=== PATIENT | male | born 1960 | race Hispanic/Latino ===

== ENCOUNTER 2018-09-20 22:58 | Inpatient (IN) | payer OTHER ==
[~2018-09-20] VITALS: Ht 167.6 cm; Wt 130.0 kg
[2018-09-20 23:27] LABS: BASOPHILS % (AUTO) 0.9 % (0.0-5.0); EOSINOPHILS % (AUTO) 0.8 % (0.0-8.0); HEMATOCRIT 42.9 % (42-54); LYMPHOCYTES % (AUTO) 32.3 % (21.0-51.0); MEAN CORPUSCULAR HEMOGLOBIN 29.4 pg (27.0-33.0); NUCLEATED RED BLOOD CELLS 0.1 % (0.0-0.19); PLATELET COUNT (AUTO) 155 K/uL (130-400); RED BLOOD CELL COUNT(AUTO) 5.11 MIL/uL (4.50-6.20); RED CELL DISTRIBUTION WIDTH 13.1 % (11.0-15.5); WHITE BLOOD COUNT (AUTO) 10.7 K/uL (4.8-10.8)
[2018-09-20 23:41] LABS: ALBUMIN 3.4 g/dL (3.5-5.0); BILIRUBIN,TOTAL 0.9 mg/dL (0.2-1.0); CREATININE 2.4 mg/dL (0.5-1.5); POTASSIUM 4.4 mmol/L (3.5-5.1); TOTAL PROTEIN, SERUM 7.3 g/dL (6.0-8.3)
[2018-09-21] VITALS (14 sets, daily range): BP systolic 148–178; BP diastolic 75–104
[2018-09-21] MEDS ORDERED: ONDANSETRON HCL 4 MG/2 ML VIAL ONE (00:19)
[2018-09-21] MEDS ORDERED: MORPHINE SULFATE 4 MG/1ML SYG ONE ×2 (00:19→02:12)
[2018-09-21] MEDS ORDERED: SODIUM CHLORIDE 0.9% 1000ML 1,000 ML IV ONE (00:20)
[2018-09-21] MEDS ORDERED: CALCITONIN 200 UNITS/ML 2 ML VIAL IM ONE (00:44)
[2018-09-21] MEDS ORDERED: ACETAMINOPHEN 325 MG TAB PO PRN (02:15)
[2018-09-21] MEDS ORDERED: MORPHINE SULFATE 2 MG/ML 1ML SYG IV PRN (02:15)
[2018-09-21] MEDS ORDERED: ONDANSETRON HCL 4 MG/2 ML VIAL IV PRN (02:15)
[2018-09-21 02:19] LABS: APPEARANCE,URINE CLEAR (CLEAR); BILIRUBIN,URINE NEGATIVE (NEGATIVE); COLOR,URINE YELLOW (YELLOW); GLUCOSE, URINE (UA) NEGATIVE (NEGATIVE); KETONES,URINE NEGATIVE (NEGATIVE); LEUKOCYTE ESTERASE ,URINE NEGATIVE (NEGATIVE); NITRATE,URINE NEGATIVE (NEGATIVE); OCCULT BLOOD,URINE NEGATIVE (NEGATIVE); PROTEIN,URINE NEGATIVE (NEGATIVE); UROBILINOGEN,URINE 0.2 mg/dL (0.2-1.0)
--- NOTE | 2018-09-21 03:00 | NUR ---
ADMISSION NOTE ADMIT TO ROOM 419 VIA STRETCHER FROM ER. PATIENT AWAKE, ALERT, OX3, NO SOB, NO C/O PAIN AT THIS TIME, FAMILY AT BEDSIDE, TEACH PATIENT PLAN OF CARE AND EXPECTED OUTCOME, PATIENT AND FAMILY VERBALIZED UNDERSTANDING VIA TEACH BACK
[2018-09-21] MEDS: INSULIN HUMULIN R 100 UNIT/ML 3ML SQ SCH ×4 (06:08→20:14)
[2018-09-21] MEDS: MORPHINE SULFATE 4 MG/1ML SYG IV PRN ×2 (07:49→12:19)
[2018-09-21] MEDS: ENOXAPARIN SODIUM 40 MG/0.4 ML SYRINGE SQ SCH ×2 (09:00→20:38)
[2018-09-21] MEDS: FAMOTIDINE/PF 20 MG/2 ML VIAL IV SCH (11:05)
[2018-09-21] MEDS: SODIUM CHLORIDE 0.9% 1000ML 1,000 ML IV SCH ×2 (11:06→17:35)
[2018-09-21] MEDS: HYDRALAZINE HCL 20 MG/ML VIAL IV PRN (11:43)
--- NOTE | 2018-09-21 14:30 | NUR ---
cm note met with patient and with family and [facility] resides at home with spouse, and sister assists, pt states has gotten weaker in the last 3 weeks, and is using a walker, due to weakness. [facility] dc plan is back to same home setting at time of dc. provided pt with list of low income clincs in the area, and rx assist. pt states he has spoken to [employer] for possible assist with [facility] coverage. Addendum: 09/21/18 at 1432 by BRIE GARRIDO CM Amended: Links added.
[2018-09-21 16:53] LABS: CREATININE 2.4 mg/dL (0.5-1.5); PHOSPHORUS 4.9 mg/dL (2.5-4.9)
--- NOTE | 2018-09-21 17:35 | NUR ---
DR PALM CONSULTED ON PATIENT NEW ORDERS RECEIVED FOR DAILY WT, I&O , LABS IN AM AND ZOMETA 5MG IV TIME ONCE
--- NOTE | 2018-09-21 17:40 | NUR ---
REPORT GIVEN AND PATIENT MOVED TO [facility], FAMILY INFORMED OF ROOM CHANGE
[2018-09-21] MEDS ORDERED: PAMIDRONATE DISODIUM 90MG VIAL 90 MG in SODIUM CHLORIDE 0.9% 1000ML 1,000 ML IV SCH (18:00)
--- NOTE | 2018-09-21 18:06 | NUR ---
DR ECKERT PAGED VIA [employer] SERVICE.
[2018-09-21] MEDS ORDERED: PHARMACY COMMUNICATION MISC SCH (18:15)
--- NOTE | 2018-09-21 18:46 | NUR ---
DR VARMA CANDY SEPARATOR HARD FOR DR ANN, PAGED VIA ANSWERING SERVICE.
[2018-09-21] MEDS ORDERED: DEXAMETHASONE SOD PHOSPHATE 4 MG/ML 1ML VIAL IVP SCH (20:00)
[2018-09-21] MEDS ORDERED: HYDROCORTISONE SOD SUCCINATE 100 MG/2 ML VIAL IV SCH (20:00)
[2018-09-21] MEDS: FUROSEMIDE 10 MG/ML 4ML VIAL IV SCH (20:37)
[2018-09-22] VITALS (24 sets, daily range): BP systolic 125–178; BP diastolic 55–93
[2018-09-22] MEDS: SODIUM CHLORIDE 0.9% 1000ML 1,000 ML IV SCH ×8 (00:14→23:32)
[2018-09-22] MEDS: DEXAMETHASONE SOD PHOSPHATE 4 MG/ML 1ML VIAL IVP SCH ×5 (00:14→23:07)
[2018-09-22] MEDS: HYDRALAZINE HCL 20 MG/ML VIAL IV PRN ×2 (01:56→23:07)
[2018-09-22 04:03] LABS: HEMATOCRIT 45.2 % (42-54); MEAN CORPUSCULAR HEMOGLOBIN 29.2 pg (27.0-33.0); MEAN CORPUSCULAR HGB CONC 34.9 g/dL (32.0-36.0); MEAN CORPUSCULAR VOLUME 83.6 fL (79-99); NUCLEATED RED BLOOD CELLS 0.2 % (0.0-0.19); PLATELET COUNT (AUTO) 187 K/uL (130-400); RED CELL DISTRIBUTION WIDTH 13.2 % (11.0-15.5); WHITE BLOOD COUNT (AUTO) 8.4 K/uL (4.8-10.8)
[2018-09-22 04:17] LABS: ALBUMIN 3.3 g/dL (3.5-5.0); BILIRUBIN,TOTAL 0.8 mg/dL (0.2-1.0); CREATININE 2.4 mg/dL (0.5-1.5); MAGNESIUM 1.9 mg/dL (1.80-2.40); PHOSPHORUS 4.3 mg/dL (2.5-4.9); TOTAL PROTEIN, SERUM 7.6 g/dL (6.0-8.3)
[2018-09-22] MEDS: INSULIN HUMULIN R 100 UNIT/ML 3ML SQ SCH ×4 (06:40→20:53)
[2018-09-22] MEDS: FAMOTIDINE/PF 20 MG/2 ML VIAL IV SCH (08:48)
[2018-09-22] MEDS: FOLIC ACID/VITAMIN B COMP W-C 1 MG CAP/TAB PO SCH (08:48)
[2018-09-22] MEDS: FUROSEMIDE 10 MG/ML 4ML VIAL IV SCH ×2 (08:49→20:29)
[2018-09-22] MEDS: ENOXAPARIN SODIUM 40 MG/0.4 ML SYRINGE SQ SCH ×2 (09:00→20:30)
--- NOTE | 2018-09-22 10:10 | NUR ---
DYSPHAGIA EVAL COMPLETE. -S/S OF ASPIRATION. RECOMMEND REGULAR, THIN LIQUID DIET; PILLS WHOLE WITH LIQUIDS. PATIENT INFORMATION: Pt IS A 57 Y.O. MALE REFERRED FOR A BEDSIDE DYSPHAGIA EVALUATION SECONDARY TO C/O DIFFICULTY SWALLOWING LIQUIDS IN THE HOME. Pt AAOX3 AND SERVED THE PRIMARY INFORMANT FOR MEDICAL AND SOCIAL HISTORY. Pt ADMITTED SECONDARY TO POSSIBLE PROSTATE MASS, HYPERCALCEMIA, RENAL INSUFFICIENCY. PMHX IDDM, HYPERTENSION, HYPERCHOLESTEREMIA, HERNIA, URINARY INCONTINENCE, BPH, OBESITY, APPENDECTOMY, BRAIN TUMOR, RIGHT LOWER EXTREMITY SURGERY. EVALUATION: SWALLOW FUNCTION AND EFFICIENCY WITHIN FUNCTIONAL LIMITS. ORAL MOTOR STRENGTH, COORDINATION, AND ROM WITHIN FUNCTIONAL LIMITS. LARYNGEAL ELEVATION/EXCURSION STRONG WITH TIMELY PHARYNGEAL RESPONSE. NO OVERT SIGNS OR SYMPTOMS OF ASPIRATION PRESENT AT BEDSIDE. VOCAL QUALITY CLEAR WITH NO THROAT CLEAR OR COUGH RESPONSE PRESENT. RECOMMENDATIONS: 1. REGULAR TEXTURE, THIN LIQUID DIET; PILLS WHOLE WITH LIQUIDS. 2. COMPENSATORY STRATEGIES (PROPHYLAXIS): *SEATED AT 90 DEGREE ANGLE G-CODES SWALLOWING: [id number] Addendum: 09/22/18 at [address] Amended: Links added.
--- NOTE | 2018-09-22 15:30 | NUR ---
RD Notification Notification for Poor appetite and wt loss. Pt admitted for prostate mass, hypercalcemia, renal insufficiency. Pt with poor PO at 25%. RD rec to add 60mL ProMod BID and appetite stimulant as medically feasible. Pt LBM 09/18/18. Pt monitored labs: Na 135, Cl 98, BUN 46, Cr 2.4, GFR 39m Glu 336, Ca 16.7, Alk 160, Alb 3.3. RD to continue to monitor. Please notify RD as additional nutrition concerns arise. Thank you. Addendum: 09/22/18 at [address] RD Amended: Links added.
[2018-09-22] MEDS: MORPHINE SULFATE 4 MG/1ML SYG IV PRN (21:20)
[2018-09-23] VITALS (24 sets, daily range): BP systolic 112–173; BP diastolic 59–90
[2018-09-23] MEDS: SODIUM CHLORIDE 0.9% 1000ML 1,000 ML IV SCH ×5 (04:06→21:32)
[2018-09-23 04:09] LABS: HEMATOCRIT 40.8 % (42-54); MEAN CORPUSCULAR HEMOGLOBIN 30.2 pg (27.0-33.0); MEAN CORPUSCULAR HGB CONC 36.2 g/dL (32.0-36.0); MEAN CORPUSCULAR VOLUME 83.3 fL (79-99); NUCLEATED RED BLOOD CELLS 0.1 % (0.0-0.19); PLATELET COUNT (AUTO) 181 K/uL (130-400); RED CELL DISTRIBUTION WIDTH 13.5 % (11.0-15.5)
[2018-09-23 04:29] LABS: CREATININE 2.3 mg/dL (0.5-1.5); MAGNESIUM 1.1 mg/dL (1.80-2.40); PHOSPHORUS 3.4 mg/dL (2.5-4.9)
[2018-09-23] MEDS ORDERED: MAGNESIUM 2GM PREMIX 50ML 50 ML IV ONE ×2 (04:45→05:18)
[2018-09-23] MEDS: DEXAMETHASONE SOD PHOSPHATE 4 MG/ML 1ML VIAL IVP SCH ×4 (06:13→23:22)
[2018-09-23] MEDS ORDERED: POTASSIUM CHLORIDE 20 MEQ ERTAB PO SCH (06:30)
[2018-09-23] MEDS: INSULIN LISPRO 100 UNIT/ML 3ML SQ SCH ×7 (06:41→21:30)
[2018-09-23] MEDS ORDERED: LIDOCAINE HCL-MPF 1% 2ML VIAL IVP PRN (07:00)
[2018-09-23] MEDS ORDERED: POTASSIUM CHLORIDE 10% ELIXIR 20 MEQ/15 ML UDCUP PO PRN (07:00)
[2018-09-23] MEDS ORDERED: POTASSIUM CHLORIDE 10MEQ/100ML 100 ML IV PRN (07:00)
[2018-09-23] MEDS: METOPROLOL TARTRATE 25 MG TAB PO SCH ×3 (08:14→20:09)
--- NOTE | 2018-09-23 08:20 | NUR ---
RADHA TONG [facility] FOR DR. DECLAN BORRERO IN TO SEE PATIENT. LABS REVIEWED, SHE SPOKE WITH PT AND SPOUSE REGARDING FURTHER POC. PENDING 2D ECHO, PENDING DR. ANN TO EVALUATE AND PENDING CARDIAC CLEARANCE. WILL CONT TO MONITOR. Addendum: 09/23/18 at 1511 by JOSE ANGEL COLLINS RN RN CARDIAC CLEARANCE FOR POSSIBLE DECOMPRESSION BY DR. CARMICHAEL.
[2018-09-23] MEDS: FAMOTIDINE/PF 20 MG/2 ML VIAL IV SCH (09:41)
[2018-09-23] MEDS: FOLIC ACID/VITAMIN B COMP W-C 1 MG CAP/TAB PO SCH (09:41)
[2018-09-23] MEDS: POLYETHYLENE GLYCOL 3350 17 GM POWD.PACK PO SCH (09:42)
[2018-09-23] MEDS: FUROSEMIDE 10 MG/ML 4ML VIAL IV SCH ×2 (09:42→20:09)
[2018-09-23] MEDS: ENOXAPARIN SODIUM 40 MG/0.4 ML SYRINGE SQ SCH ×2 (09:43→20:10)
--- NOTE | 2018-09-23 10:17 | NUR ---
ROUNDS GISELE Hernandez FOR DR. SANCHEZ IN TO SEE PATIENT. MADE AWARE 2-DECHO HAS BEEN DONE TODAY ABOUT 30 MINUTES AGO. WILL AWAIT FOR DR. SANCHEZ.
--- NOTE | 2018-09-23 12:00 | NUR ---
MD ROUNDS DR. DECLAN BORRERO AND DR. PALM IN TO SEE PATIENT. NEW ORDERS RECEIVED TO BE CARRIED OUT.
[2018-09-23] MEDS: MAGNESIUM 2GM PREMIX 50ML 50 ML IV PRN (13:09)
--- NOTE | 2018-09-23 17:04 | NUR ---
ROUNDS DR. SANCHEZ IN TO SEE PATIENT. PATIENT HAS BEEN CLEARED FOR SX. REFER TO MD PROGRESS NOTE. I CALLED DR. CARMICHAEL'S OFFICE, SPOKE WITH ANTONETTE LEE. INFORMED OF CLEARANCE. STATES HE WILL CALL BACK WITH FURTHER ORDERS.
--- NOTE | 2018-09-23 17:45 | NUR ---
RECEIVED CALL BACK FROM DR. CARMICHAEL'S OFFICE, SPOKE WITH ANTONETTE Hernandez PER , PLAN FOR SX ON SATURDAY. NO NEW ORDERS AT THIS TIME. DR. CHOE MADE AWARE.
--- NOTE | 2018-09-23 18:12 | NUR ---
ROUNDS DR. ANN IN TO SEE PATIENT. MD SPOKE WITH PATIENT AND SPOUSE. NEW ORDERS RECEIVED TO BE CARRIED OUT.
--- NOTE | 2018-09-23 19:22 | NUR ---
LABS ORDERED BY DR. ANN TO BE ADDRESSED BY LAB TOMORROW. I SPOKE TO YFN, STATES THEY WILL BE SENT OUT TOMORROW EVENING. ORDER FAXED TO LAB 8233. HILARIO GALLARDO MADE AWARE.
[2018-09-23] MEDS: POTASSIUM CHLORIDE 20 MEQ ERTAB PO PRN (20:09)
[2018-09-23] MEDS: INSULIN GLARGINE 100 UNITS/ML 10 ML VIAL SQ SCH (21:31)
[2018-09-24] VITALS (24 sets, daily range): BP systolic 109–163; BP diastolic 42–109
[2018-09-24] MEDS: SODIUM CHLORIDE 0.9% 1000ML 1,000 ML IV SCH ×6 (01:31→22:15)
--- NOTE | 2018-09-24 03:05 | NUR ---
STATUS CALLED TO BEDSIDE BY SPOUSE PT ATTEMPTING TO GET OUT OF BED. PT CONFUSED TO PLACE ANSWERS ALL QUESTIONS ASKED APPROPRIATELY MINUS PLACE. PUPILS EQUAL AND REACTIVE MOVING EXTREMITIES EQUALLY MINUS RIGHT LEG WEAKNESS WHICH IS NOT A NEW FINDING. PT REORIENTED TO PLACE AND SITUATION. HOA SOLUTION DIRECTOR NOTIFIED OF STATUS. WILL CONTINUE TO MONITOR. BED ALARM IS ON
[2018-09-24] MEDS ORDERED: DIPHENHYDRAMINE HCL 25 MG CAPSULE PO ONE (03:15)
[2018-09-24] MEDS ORDERED: DIPHENHYDRAMINE HCL 25 MG CAPSULE ONE (03:18)
[2018-09-24 03:47] LABS: BASOPHILS % (AUTO) 0.2 % (0.0-5.0); HEMATOCRIT 41.4 % (42-54); LYMPHOCYTES % (AUTO) 10.9 % (21.0-51.0); MEAN CORPUSCULAR HEMOGLOBIN 29.9 pg (27.0-33.0); MEAN CORPUSCULAR HGB CONC 35.7 g/dL (32.0-36.0); MEAN CORPUSCULAR VOLUME 83.9 fL (79-99); NEUTROPHILS % (AUTO) 82.9 % (40.0-77.0); NUCLEATED RED BLOOD CELLS 0.1 % (0.0-0.19); PLATELET COUNT (AUTO) 195 K/uL (130-400); RED BLOOD CELL COUNT(AUTO) 4.93 MIL/uL (4.50-6.20); RED CELL DISTRIBUTION WIDTH 13.4 % (11.0-15.5); WHITE BLOOD COUNT (AUTO) 9.4 K/uL (4.8-10.8)
[2018-09-24 04:02] LABS: ALBUMIN 2.9 g/dL (3.5-5.0); CREATININE 2.4 mg/dL (0.5-1.5); MAGNESIUM 1.6 mg/dL (1.80-2.40); POTASSIUM 3.3 mmol/L (3.5-5.1)
[2018-09-24] MEDS: POTASSIUM CHLORIDE 20 MEQ ERTAB PO PRN ×4 (04:12→16:08)
[2018-09-24 04:13] LABS: B-TYPE NATRIURETIC PEPTIDE 42 pg/mL (0-100)
[2018-09-24] MEDS: MAGNESIUM 2GM PREMIX 50ML 50 ML IV PRN ×2 (04:13→14:57)
[2018-09-24] MEDS: DEXAMETHASONE SOD PHOSPHATE 4 MG/ML 1ML VIAL IVP SCH ×4 (06:16→23:13)
[2018-09-24] MEDS: INSULIN LISPRO 100 UNIT/ML 3ML SQ SCH ×7 (06:23→20:33)
[2018-09-24] MEDS ORDERED: LACTULOSE 20 GM/30 ML UDCUP PO PRN (07:45)
[2018-09-24] MEDS: FOLIC ACID/VITAMIN B COMP W-C 1 MG CAP/TAB PO SCH (08:19)
[2018-09-24] MEDS: METOPROLOL TARTRATE 25 MG TAB PO SCH ×2 (08:19→20:07)
[2018-09-24] MEDS: FAMOTIDINE/PF 20 MG/2 ML VIAL IV SCH (08:20)
[2018-09-24] MEDS: POLYETHYLENE GLYCOL 3350 17 GM POWD.PACK PO SCH (08:20)
[2018-09-24] MEDS: FUROSEMIDE 10 MG/ML 4ML VIAL IV SCH ×2 (08:20→20:03)
[2018-09-24] MEDS: ENOXAPARIN SODIUM 40 MG/0.4 ML SYRINGE SQ SCH ×2 (08:20→20:09)
[2018-09-24 14:25] LABS: MAGNESIUM 1.9 mg/dL (1.80-2.40); POTASSIUM 3.3 mmol/L (3.5-5.1)
[2018-09-24] MEDS ORDERED: LOSA50TA64 PO (17:28)
[2018-09-24] MEDS ORDERED: AMLO5TAB9 PO (17:28)
[2018-09-24] MEDS ORDERED: ISOS10TA8 PO (17:28)
[2018-09-24] MEDS ORDERED: METO-409 PO (17:28)
[2018-09-24] MEDS ORDERED: PRAV10TA39 PO (17:28)
[2018-09-24] MEDS ORDERED: ACAR50 PO (17:28)
[2018-09-24] MEDS ORDERED: GLYB5TAB8 PO (17:28)
[2018-09-24] MEDS: INSULIN GLARGINE 100 UNITS/ML 10 ML VIAL SQ SCH (20:33)
[2018-09-24] MEDS ORDERED: DIAZEPAM 5 MG TABLET PO PRN (21:00)
[2018-09-25] VITALS (23 sets, daily range): BP systolic 121–175; BP diastolic 61–107
[2018-09-25] MEDS: SODIUM CHLORIDE 0.9% 1000ML 1,000 ML IV SCH ×4 (01:43→15:18)
[2018-09-25] MEDS: POTASSIUM CHLORIDE 20 MEQ ERTAB PO PRN (01:46)
[2018-09-25 03:52] LABS: HEMATOCRIT 40.8 % (42-54); MEAN CORPUSCULAR HEMOGLOBIN 29.1 pg (27.0-33.0); MEAN CORPUSCULAR HGB CONC 34.9 g/dL (32.0-36.0); MEAN CORPUSCULAR VOLUME 83.4 fL (79-99); PLATELET COUNT (AUTO) 214 K/uL (130-400); RED BLOOD CELL COUNT(AUTO) 4.89 MIL/uL (4.50-6.20); RED CELL DISTRIBUTION WIDTH 13.3 % (11.0-15.5); WHITE BLOOD COUNT (AUTO) 11.8 K/uL (4.8-10.8)
[2018-09-25 04:08] LABS: ALBUMIN 2.8 g/dL (3.5-5.0); BILIRUBIN,TOTAL 0.5 mg/dL (0.2-1.0); CREATININE 2.1 mg/dL (0.5-1.5); MAGNESIUM 2.9 mg/dL (1.80-2.40); PHOSPHORUS 2.7 mg/dL (2.5-4.9); POTASSIUM 3.8 mmol/L (3.5-5.1); TOTAL PROTEIN, SERUM 6.1 g/dL (6.0-8.3)
[2018-09-25] MEDS ORDERED: LORAZEPAM 2 MG/ML 1 ML VIAL ONE (04:30)
[2018-09-25] MEDS ORDERED: LORAZEPAM 2 MG/ML 1 ML VIAL IVP ONE (04:45)
[2018-09-25] MEDS: DEXAMETHASONE SOD PHOSPHATE 4 MG/ML 1ML VIAL IVP SCH ×3 (05:20→17:48)
[2018-09-25 05:35] LABS: LYMPHOCYTES % (MANUAL) 12 % (22-44); MAN.DIFF COMMENT-IMPRESSION MANUAL DIFFERENTIAL; MONOCYTES % (MANUAL) 9 % (2-9); SEGMENTED NEUTROPHILS % 79 % (40-70)
[2018-09-25] MEDS: INSULIN LISPRO 100 UNIT/ML 3ML SQ SCH ×7 (06:18→21:16)
[2018-09-25] MEDS ORDERED: HALOPERIDOL LACTATE 5 MG/ML VIAL IV PRN (07:30)
--- NOTE | 2018-09-25 07:45 | NUR ---
MITTENS APPLIED TO BOTH HANDS THIS MORNING PATIENT ATTEMPTING TO REMOVE PIV AND MONITORS. DR PARKER ORDERED IV HALDOL. 20G PIV STARTED TO RIGHT HAND ON FIRST ATTEMPT, HALDOL GIVEN AND PIV FLUSHED. PATIENT'S EDUCATED ON PLAN AND MEDICATION. ALL QUESTIONS ANSWERED.
[2018-09-25] MEDS: POLYETHYLENE GLYCOL 3350 17 GM POWD.PACK PO SCH (08:15)
[2018-09-25] MEDS: FAMOTIDINE/PF 20 MG/2 ML VIAL IV SCH (09:00)
[2018-09-25] MEDS: FOLIC ACID/VITAMIN B COMP W-C 1 MG CAP/TAB PO SCH (09:00)
[2018-09-25] MEDS: METOPROLOL TARTRATE 25 MG TAB PO SCH ×2 (09:00→21:13)
[2018-09-25] MEDS: ENOXAPARIN SODIUM 40 MG/0.4 ML SYRINGE SQ SCH ×2 (09:33→21:13)
[2018-09-25] MEDS: NICOTINE 21 MG/ 24 HR PATCH TD SCH (09:33)
[2018-09-25] MEDS: INSULIN GLARGINE 100 UNITS/ML 10 ML VIAL SQ SCH (21:15)
[2018-09-26] VITALS (12 sets, daily range): BP systolic 124–177; BP diastolic 65–109
[2018-09-26] MEDS: DEXAMETHASONE SOD PHOSPHATE 4 MG/ML 1ML VIAL IVP SCH ×4 (00:20→17:21)
[2018-09-26] MEDS: INSULIN LISPRO 100 UNIT/ML 3ML SQ SCH ×7 (02:28→21:39)
[2018-09-26 04:09] LABS: INR 1.06 (0.85-1.15); PARTIAL THROMBOPLASTIN TIME 28.7 SEC (26.3-35.5); PROTHROMBIN TIME 11.1 SEC (9.6-11.6)
[2018-09-26 04:16] LABS: ALBUMIN 2.6 g/dL (3.5-5.0); BILIRUBIN,TOTAL 0.5 mg/dL (0.2-1.0); MAGNESIUM 1.8 mg/dL (1.80-2.40); PHOSPHORUS 2.7 mg/dL (2.5-4.9); POTASSIUM 3.8 mmol/L (3.5-5.1); TOTAL PROTEIN, SERUM 5.9 g/dL (6.0-8.3)
[2018-09-26 04:39] LABS: BASOPHILS % (AUTO) 0.2 % (0.0-5.0); EOSINOPHILS % (AUTO) 0.2 % (0.0-8.0); HEMATOCRIT 39.2 % (42-54); LYMPHOCYTES % (AUTO) 12.4 % (21.0-51.0); MEAN CORPUSCULAR HEMOGLOBIN 30.2 pg (27.0-33.0); MEAN CORPUSCULAR HGB CONC 35.7 g/dL (32.0-36.0); MEAN CORPUSCULAR VOLUME 84.7 fL (79-99); MONOCYTES % (AUTO) 9.2 % (3.0-13.0); PLATELET COUNT (AUTO) 186 K/uL (130-400); RED BLOOD CELL COUNT(AUTO) 4.63 MIL/uL (4.50-6.20); RED CELL DISTRIBUTION WIDTH 13.6 % (11.0-15.5); WHITE BLOOD COUNT (AUTO) 8.7 K/uL (4.8-10.8)
[2018-09-26] MEDS: SODIUM CHLORIDE 0.9% 1000ML 1,000 ML IV SCH ×2 (04:58→17:23)
[2018-09-26] MEDS: METOPROLOL TARTRATE 25 MG TAB PO SCH ×2 (07:37→21:35)
[2018-09-26] MEDS: MAGNESIUM 2GM PREMIX 50ML 50 ML IV PRN (07:39)
[2018-09-26] MEDS: POLYETHYLENE GLYCOL 3350 17 GM POWD.PACK PO SCH ×2 (07:58→10:10)
[2018-09-26] MEDS: FOLIC ACID/VITAMIN B COMP W-C 1 MG CAP/TAB PO SCH ×2 (07:58→10:11)
[2018-09-26] MEDS: ENOXAPARIN SODIUM 40 MG/0.4 ML SYRINGE SQ SCH ×5 (07:58→21:00)
[2018-09-26] MEDS: NICOTINE 21 MG/ 24 HR PATCH TD SCH ×2 (07:59→10:11)
--- NOTE | 2018-09-26 08:33 | NUR ---
PT RECEIVED IN BED, AAOX4, NO ACUTE DISTRESS NOTED. PT IS CALM AND COOPERATIVE WITH CARE. HAND MITTENS OFF. PT IS NPO FOR SCHEDULED PROCEDURE LAMINECTOMY WITH BONE BIOPSY WITH DR. CARMICHAEL. PT IS NPO, CONSENT IS SIGNED AND IN CHART. TELE WITH SR 60s. NEW PIV TO RIGHT FA INSERTED 20G. PIV TO RIGHT HAND REMOVED D/T PIV LEAKING. WILL CONT TO MONITOR CLOSELY.
--- NOTE | 2018-09-26 08:37 | NUR ---
MD ROUNDS DR. WARNER IN TO SEE PATIENT.
--- NOTE | 2018-09-26 09:38 | NUR ---
RECEIVED CALL FROM WILLIAN GALLARDOMANUFACTURING APPLICATIONS ENGINEER, PER DR. AMOL PadillaX TO BE RESCHEDULED FOR TOMORROW AT 0800. PATIENT AND FAMILY MADE AWARE. I UPDATED DR. WARNER OF NEW ORDER.
[2018-09-26] MEDS: FAMOTIDINE/PF 20 MG/2 ML VIAL IV SCH (10:11)
[2018-09-26] MEDS: ACETAMINOPHEN 325 MG TAB PO PRN ×2 (14:25→22:12)
--- NOTE | 2018-09-26 18:41 | NUR ---
RECEIVED CALL FROM DR. AMOL MD CONFIRMED SURGERY FOR TOMORROW AT 0800.
[2018-09-26] MEDS: INSULIN GLARGINE 100 UNITS/ML 10 ML VIAL SQ SCH (21:37)
[2018-09-27] VITALS (22 sets, daily range): BP systolic 101–142; BP diastolic 55–84
[2018-09-27] MEDS: DEXAMETHASONE SOD PHOSPHATE 4 MG/ML 1ML VIAL IVP SCH ×4 (01:06→16:11)
[2018-09-27 03:54] LABS: BASOPHILS % (AUTO) 0.4 % (0.0-5.0); EOSINOPHILS % (AUTO) 0.2 % (0.0-8.0); LYMPHOCYTES % (AUTO) 13.8 % (21.0-51.0); MEAN CORPUSCULAR HEMOGLOBIN 29.1 pg (27.0-33.0); MEAN CORPUSCULAR HGB CONC 34.7 g/dL (32.0-36.0); MONOCYTES % (AUTO) 9.5 % (3.0-13.0); NEUTROPHILS % (AUTO) 76.1 % (40.0-77.0); NUCLEATED RED BLOOD CELLS 0.1 % (0.0-0.19); PLATELET COUNT (AUTO) 208 K/uL (130-400); RED BLOOD CELL COUNT(AUTO) 4.76 MIL/uL (4.50-6.20); RED CELL DISTRIBUTION WIDTH 13.5 % (11.0-15.5); WHITE BLOOD COUNT (AUTO) 9.3 K/uL (4.8-10.8)
[2018-09-27 04:10] LABS: CREATININE 1.7 mg/dL (0.5-1.5); PHOSPHORUS 2.2 mg/dL (2.5-4.9); POTASSIUM 3.8 mmol/L (3.5-5.1)
[2018-09-27] MEDS ORDERED: LIDOCAINE PF 2% 5ML ABBOJECT ONE ×2 (07:20→10:28)
[2018-09-27] MEDS ORDERED: SUCCINYLCHOLINE 200MG/10ML SYR ONE (07:20)
[2018-09-27] MEDS ORDERED: ROCURONIUM 10MG/1ML SYR 10 MG/ML ML ONE ×2 (07:21→09:50)
[2018-09-27] MEDS ORDERED: FENTANYL CITRATE PF 50 MCG/1 ML 2ML VIAL ONE ×2 (07:21→10:16)
[2018-09-27] MEDS ORDERED: PROPOFOL 10 MG/ML 20ML VIAL IV ONE (07:21)
[2018-09-27] MEDS: INSULIN LISPRO 100 UNIT/ML 3ML SQ SCH ×7 (07:26→21:00)
[2018-09-27] MEDS ORDERED: BUPIVACAINE/PF 0.25% 30ML VIAL IJ ONE (07:26)
[2018-09-27] MEDS ORDERED: VANCOMYCIN HCL 1 GM VIAL ONE (07:26)
[2018-09-27] MEDS ORDERED: BACITRACIN 50,000 UNIT VIAL ONE (07:27)
[2018-09-27] MEDS ORDERED: THROMBIN-JMI 5000 UNIT/VIAL TP ONE (07:27)
[2018-09-27] MEDS ORDERED: PHENYLEPHRINE HCL 10 MG/ML 1ML VIAL IV ONE (07:38)
[2018-09-27] MEDS ORDERED: CEFAZOLIN SODIUM 1 GM VIAL ONE (08:02)
[2018-09-27] MEDS ORDERED: MIDAZOLAM HCL 1 MG/ML 2ML VIAL ONE (08:22)
[2018-09-27] MEDS ORDERED: EPHEDRINE SULFATE 50 MG/ML AMPULE ONE (08:52)
[2018-09-27] MEDS: ENOXAPARIN SODIUM 40 MG/0.4 ML SYRINGE SQ SCH ×2 (09:00→21:01)
[2018-09-27] MEDS: METOPROLOL TARTRATE 25 MG TAB PO SCH ×2 (09:00→21:00)
[2018-09-27] MEDS: FOLIC ACID/VITAMIN B COMP W-C 1 MG CAP/TAB PO SCH (09:00)
[2018-09-27] MEDS: POLYETHYLENE GLYCOL 3350 17 GM POWD.PACK PO SCH (09:00)
[2018-09-27] MEDS ORDERED: ESMOLOL HCL 10 MG/ML 10 ML VIAL ONE (09:12)
[2018-09-27] MEDS ORDERED: NEOSTIGMINE 5MG/5ML SYR IV ONE (10:10)
[2018-09-27] MEDS ORDERED: GLYCOPYRROLATE 1 MG/5 ML SYRINGE ONE (10:10)
[2018-09-27] MEDS ORDERED: [UNRECOGNIZED DRUG - OTHER] IRRIG SCH ×2 (10:15)
[2018-09-27] MEDS ORDERED: TOBRAMYCIN SULFATE 1.2 GM IRRIG SCH ×2 (10:15)
[2018-09-27] MEDS ORDERED: MEPERIDINE-PF 25 MG/ML SYG ONE (11:20)
--- NOTE | 2018-09-27 11:33 | NUR ---
SAMI ARMENTA NOTIFIED OF BLOODY URINE IN HOUMA, TO INFORM PRIMARY MD. Addendum: 09/27/18 at 1136 by BRIDGER HOPSON RN RN Amended: Links added.
[2018-09-27] MEDS: FAMOTIDINE/PF 20 MG/2 ML VIAL IV SCH (12:07)
[2018-09-27] MEDS ORDERED: KETOROLAC TROMETHAMINE 30MG/ML IV SCH (14:45)
[2018-09-27] MEDS ORDERED: ACETAMINOPHEN-CODEINE 300/30MG TAB PO PRN (14:45)
--- NOTE | 2018-09-27 15:21 | NUR ---
ALICIA ARMENTA RN. SHAWN UNDERWENT LAMINECTOMY. Addendum: 09/27/18 at 1522 by CHARBEL OCASIO PT Amended: Links added.
[2018-09-27] MEDS: LACTATED RINGERS 1000ML 1,000 ML IV SCH (16:09)
[2018-09-27] MEDS: KETOROLAC TROMETHAMINE 15MG/ML IV PRN (21:00)
[2018-09-27] MEDS: LACTULOSE 20 GM/30 ML UDCUP PO SCH (21:00)
[2018-09-27] MEDS: INSULIN GLARGINE 100 UNITS/ML 10 ML VIAL SQ SCH (21:14)
--- NOTE | 2018-09-27 23:06 | NUR ---
Patient resting in bed. Pillows under for comfort. Patient BLE sensation intact. Extremities warm. Did c/o back discomfort. Medicated per pain scale. Denies chest pain or sob. Ken in place draining dark yellow colored urine. Taryn care will be done during the shift. Family at bedside, call light within reach. Will continue to monitor.
[2018-09-28] MEDS: DEXAMETHASONE SOD PHOSPHATE 4 MG/ML 1ML VIAL IVP SCH ×4 (00:06→16:59)
[2018-09-28 03:15] VITALS: BP 114/72
[2018-09-28] MEDS: LACTATED RINGERS 1000ML 1,000 ML IV SCH (05:24)
[2018-09-28] MEDS: INSULIN LISPRO 100 UNIT/ML 3ML SQ SCH ×7 (06:37→21:21)
[2018-09-28] MEDS: POLYETHYLENE GLYCOL 3350 17 GM POWD.PACK PO SCH (07:26)
[2018-09-28] MEDS: FOLIC ACID/VITAMIN B COMP W-C 1 MG CAP/TAB PO SCH (07:26)
[2018-09-28] MEDS: METOPROLOL TARTRATE 25 MG TAB PO SCH ×2 (07:26→20:50)
[2018-09-28] MEDS: NICOTINE 21 MG/ 24 HR PATCH TD SCH (07:26)
[2018-09-28] MEDS: KETOROLAC TROMETHAMINE 15MG/ML IV PRN ×2 (07:26→22:49)
[2018-09-28] MEDS: LACTULOSE 20 GM/30 ML UDCUP PO SCH ×2 (07:26→21:00)
[2018-09-28] MEDS: FAMOTIDINE/PF 20 MG/2 ML VIAL IV SCH (07:26)
[2018-09-28] MEDS: ENOXAPARIN SODIUM 40 MG/0.4 ML SYRINGE SQ SCH ×2 (07:27→20:50)
[2018-09-28 07:50] VITALS: BP 122/70
--- NOTE | 2018-09-28 09:00 | NUR ---
ASSESSMENT PT IS AAOX4 DENIES CP DENIES SOB DENIES NV NO COMPLAINTS AT THIS TIME, RESTING IN BED. NOTED MID BACK DRESSING, SECURED, MINIMAL SPOTTING NOTED. PAIN CONTROLLED WITH TORADOL PRN. TOLERATED BREAKFAST AND AM MEDS. FAMILY IS AT BEDSIDE, CALL LIGHT WITHIN REACH.
[2018-09-28 10:30] VITALS: BP 102/44
--- NOTE | 2018-09-28 10:46 | NUR ---
DR WALLER ROUNDED ORDERED TO CANCEL PULMO CONSULT
[2018-09-28 16:01] VITALS: BP 127/69
--- NOTE | 2018-09-28 17:56 | NUR ---
DR CARMICHAEL CALLED UPDATES GIVEN. ORDERED TO DC LR FLUIDS, AND OK TO DC HOME TOMORROW FROM HIS STANDPOINT PER PRIMARY CARE AND OTHER CONSULTANTS.
[2018-09-28 19:30] VITALS: BP 135/58
[2018-09-28] MEDS: INSULIN GLARGINE 100 UNITS/ML 10 ML VIAL SQ SCH (20:56)
[2018-09-28 23:33] VITALS: BP 109/52
[2018-09-29] MEDS: DEXAMETHASONE SOD PHOSPHATE 4 MG/ML 1ML VIAL IVP SCH ×5 (00:56→22:54)
--- NOTE | 2018-09-29 01:48 | NUR ---
PATIENT ALERT AND ORIENTED. SITTING AT BEDSIDE. DRESSING TO BACK INTACT. OLD DRY BLOOD NOTICED. CHRISTENSEN IN PLACE DRAINING CLEAR YELLOW URINE. PATIENT C/O BACK PAIN. MEDICATED PER PAIN SCALE.
[2018-09-29 03:14] VITALS: BP 135/84
[2018-09-29 04:13] LABS: BASOPHILS % (AUTO) 0.1 % (0.0-5.0); EOSINOPHILS % (AUTO) 0.1 % (0.0-8.0); HEMATOCRIT 39.2 % (42-54); LYMPHOCYTES % (AUTO) 14.5 % (21.0-51.0); MEAN CORPUSCULAR HEMOGLOBIN 28.6 pg (27.0-33.0); MEAN CORPUSCULAR HGB CONC 33.7 g/dL (32.0-36.0); MEAN CORPUSCULAR VOLUME 84.8 fL (79-99); MONOCYTES % (AUTO) 8.7 % (3.0-13.0); NEUTROPHILS % (AUTO) 76.6 % (40.0-77.0); NUCLEATED RED BLOOD CELLS 0.1 % (0.0-0.19); PLATELET COUNT (AUTO) 211 K/uL (130-400); RED BLOOD CELL COUNT(AUTO) 4.63 MIL/uL (4.50-6.20); RED CELL DISTRIBUTION WIDTH 13.9 % (11.0-15.5); WHITE BLOOD COUNT (AUTO) 12.6 K/uL (4.8-10.8)
[2018-09-29 04:21] LABS: CREATININE 1.4 mg/dL (0.5-1.5); POTASSIUM 3.9 mmol/L (3.5-5.1)
[2018-09-29] MEDS: INSULIN LISPRO 100 UNIT/ML 3ML SQ SCH ×7 (06:31→23:01)
[2018-09-29 07:48] VITALS: BP 128/89
[2018-09-29] MEDS: POLYETHYLENE GLYCOL 3350 17 GM POWD.PACK PO SCH (09:55)
[2018-09-29] MEDS: FAMOTIDINE 20MG TAB 20 MG TAB PO SCH (09:55)
[2018-09-29] MEDS: FOLIC ACID/VITAMIN B COMP W-C 1 MG CAP/TAB PO SCH (09:55)
[2018-09-29] MEDS: LACTULOSE 20 GM/30 ML UDCUP PO SCH ×2 (09:55→22:54)
[2018-09-29] MEDS: METOPROLOL TARTRATE 25 MG TAB PO SCH ×2 (09:55→22:54)
[2018-09-29] MEDS: NICOTINE 21 MG/ 24 HR PATCH TD SCH (09:56)
[2018-09-29] MEDS: ENOXAPARIN SODIUM 40 MG/0.4 ML SYRINGE SQ SCH ×2 (09:56→23:04)
[2018-09-29 11:58] VITALS: BP 121/78
--- NOTE | 2018-09-29 12:30 | NUR ---
RD Follow up Pt tolerating current diet with no report of GI distress and improved appetite with PO intake at 100%. Pt LBM 09/28/18. Pt with improving renal lab trend (BUN 41, Cr 1.4, GFR 56). Pt additionally monitored nutrition labs: Glu 174, Ca 7.5, P 2.2, Alb 2.6. RD to continue to monitor. Please notify RD as nutrition concerns arise. Thank you. Addendum: 09/29/18 at [address] Amended: Links added.
[2018-09-29 15:40] VITALS: BP 106/54
[2018-09-29 19:42] VITALS: BP 118/74
[2018-09-29] MEDS: INSULIN GLARGINE 100 UNITS/ML 10 ML VIAL SQ SCH (23:15)
[2018-09-29 23:20] VITALS: BP 126/76
[2018-09-30] VITALS: BP 126/71
[2018-09-30 04:00] VITALS: BP 123/88
[2018-09-30 04:08] LABS: CREATININE 1.4 mg/dL (0.5-1.5); POTASSIUM 3.9 mmol/L (3.5-5.1)
[2018-09-30] MEDS: DEXAMETHASONE SOD PHOSPHATE 4 MG/ML 1ML VIAL IVP SCH ×2 (06:43→11:51)
[2018-09-30] MEDS: INSULIN LISPRO 100 UNIT/ML 3ML SQ SCH ×6 (06:51→16:03)
[2018-09-30 07:52] VITALS: BP 140/76
[2018-09-30] MEDS: LACTULOSE 20 GM/30 ML UDCUP PO SCH (09:00)
[2018-09-30] MEDS: POLYETHYLENE GLYCOL 3350 17 GM POWD.PACK PO SCH (09:00)
[2018-09-30] MEDS: FOLIC ACID/VITAMIN B COMP W-C 1 MG CAP/TAB PO SCH (09:27)
[2018-09-30] MEDS: METOPROLOL TARTRATE 25 MG TAB PO SCH (09:27)
[2018-09-30] MEDS: FAMOTIDINE 20MG TAB 20 MG TAB PO SCH (09:27)
[2018-09-30] MEDS: NICOTINE 21 MG/ 24 HR PATCH TD SCH (09:28)
[2018-09-30] MEDS: ENOXAPARIN SODIUM 40 MG/0.4 ML SYRINGE SQ SCH (09:28)
[2018-09-30 11:48] VITALS: BP 119/68
[2018-09-30 15:35] VITALS: BP 131/79
--- NOTE | 2018-09-30 18:40 | NUR ---
DISCHARGE TELE REGAN REMOVED. IV DISCONTINUED. PENDING DC ORDER & INSTRUCTIONS.
[2018-09-30] MEDS ORDERED: INSU3INS3 SQ (18:50)
[2018-09-30] MEDS ORDERED: METO25 PO (18:50)
[2018-09-30] MEDS ORDERED: DEXA2TAB PO (18:50)
[2018-09-30] MEDS ORDERED: [UNRECOGNIZED DRUG - CODE] MC (18:50)
[2018-09-30 19:50] VITALS: BP 139/72
--- NOTE | 2018-09-30 19:55 | NUR ---
DC DC TEACHING AND INSTRUCTION GIVEN TO PT AND FAMILY;VERBALIZED UNDERSTANDING. VS WNL: BP-139/72, HR-79,RR-20,O2 SATS- 94%, T-98.0. PT DENIES PAIN OR DISTRESS. PT ESCORTED TO PRIVATE CAR VIA WHEELCHAIR IN STABLE CONDITION.
== END 2018-09-30 20:01 | disposition home or self-care (01) | DRG 518 ==
LOC: EDH 22:58 → EDHIP 22:59 → 4CH 09-21 02:34 → 2BH 09-21 17:12 → 2DH 09-26 19:12
PROVIDERS: ADMIT Hospitalist; ATTEND Hospitalist
PROC: 07DS0ZX Extraction of Vertebral Bone Marrow, Open Approach, Diagnostic (ICD-10-PCS; 2018-09-27)
PROC: 00NX0ZZ Release Thoracic Spinal Cord, Open Approach (ICD-10-PCS; principal; 2018-09-27 08:14)
PROC: 0RB90ZZ Excision of Thoracic Vertebral Disc, Open Approach (ICD-10-PCS; 2018-09-27 08:14)
PROC: 4A11X4G Monitoring of Peripheral Nervous Electrical Activity, Intraoperative, External Approach (ICD-10-PCS; 2018-09-27 08:14)
DX: M48.04 Spinal stenosis, thoracic region (principal); G93.41 Metabolic encephalopathy; N17.9 Acute kidney failure, unspecified; C79.51 Secondary malignant neoplasm of bone; E87.1 Hypo-osmolality and hyponatremia; Z68.42 Body mass index [BMI] 45.0-49.9, adult; J98.11 Atelectasis; N42.9 Disorder of prostate, unspecified; E83.52 Hypercalcemia; M51.26 Other intervertebral disc displacement, lumbar region; N18.3 Chronic kidney disease, stage 3 (moderate); E11.22 Type 2 diabetes mellitus with diabetic chronic kidney disease; E66.01 Morbid (severe) obesity due to excess calories; E78.00 Pure hypercholesterolemia, unspecified; E78.5 Hyperlipidemia, unspecified; E83.42 Hypomagnesemia; E87.6 Hypokalemia; F17.210 Nicotine dependence, cigarettes, uncomplicated; G47.33 Obstructive sleep apnea (adult) (pediatric); I13.10 Hypertensive heart and chronic kidney disease without heart failure, with stage 1 through stage 4 chronic kidney disease, or unspecified chronic kidney disease; K59.00 Constipation, unspecified; N40.1 Benign prostatic hyperplasia with lower urinary tract symptoms; N39.498 Other specified urinary incontinence; G89.29 Other chronic pain; M12.9 Arthropathy, unspecified; C80.1 Malignant (primary) neoplasm, unspecified; M89.50 Osteolysis, unspecified site; I25.2 Old myocardial infarction; Z86.011 Personal history of benign neoplasm of the brain; Z90.49 Acquired absence of other specified parts of digestive tract; Z91.81 History of falling; Z79.4 Long term (current) use of insulin
CPT/HCPCS: 36415; 71045; 71250; 72020; 72146; 72148; 74176; 80048; 80053; 81003; 82040; 82150; 82232; 82306; 82330; 82378; 82948; 83690; 83735; 83880; 83970; 84100; 84132; 84153; 84156; 84166; 85025; 85027; 85610; 85730; 86308; 86316; 86325; 86334; 88304; 92610; 93005; 93306; 97039; 99291; A4344; G0378; J0330; J0360; J0630; J0690; J1030; J1100; J1630; J1650; J1815; J1885; J1940; J2001; J2060; J2175; J2250; J2270; J2370; J2405; J2430; J2704; J2710; J3010; J3260; J3370; J3475; J3490; J7030; J7120; Q0163

== ENCOUNTER 2018-10-21 01:09 | Emergency (ER) | payer OTHER ==
[~2018-10-21 01:09] MED LIST: DEXA2TAB PO; GLYB5TAB8 PO; INSU3INS3 SQ; METO25 PO; PRAV10TA39 PO; [UNRECOGNIZED DRUG - CODE] MC
[2018-10-21] MEDS ORDERED: HYDROMORPHONE 1 MG/1 ML AMP ONE (02:00)
[2018-10-21] MEDS ORDERED: ONDANSETRON HCL 4 MG/2 ML VIAL ONE (02:00)
[2018-10-21] MEDS ORDERED: SODIUM CHLORIDE 0.9% 1000ML 1,000 ML IV ONE (02:01)
[2018-10-21 02:06] LABS: BASOPHILS % (AUTO) 2.2 % (0.0-5.0); EOSINOPHILS % (AUTO) 0.6 % (0.0-8.0); HEMATOCRIT 35.9 % (42-54); LYMPHOCYTES % (AUTO) 22.9 % (21.0-51.0); MEAN CORPUSCULAR HEMOGLOBIN 29.5 pg (27.0-33.0); MEAN CORPUSCULAR HGB CONC 34.3 g/dL (32.0-36.0); MONOCYTES % (AUTO) 8.6 % (3.0-13.0); NEUTROPHILS % (AUTO) 65.7 % (40.0-77.0); PLATELET COUNT (AUTO) 171 K/uL (130-400); RED BLOOD CELL COUNT(AUTO) 4.17 MIL/uL (4.50-6.20); RED CELL DISTRIBUTION WIDTH 14.5 % (11.0-15.5)
[2018-10-21 02:12] LABS: CREATININE 1.1 mg/dL (0.5-1.5); POTASSIUM 4.2 mmol/L (3.5-5.1)
[2018-10-21 02:17] LABS: ALBUMIN 2.6 g/dL (3.5-5.0); BILIRUBIN,TOTAL 0.7 mg/dL (0.2-1.0); TOTAL PROTEIN, SERUM 5.9 g/dL (6.0-8.3)
[2018-10-21 02:20] LABS: INR 0.97 (0.85-1.15); PARTIAL THROMBOPLASTIN TIME 20.6 SEC (26.3-35.5); PROTHROMBIN TIME 10.2 SEC (9.6-11.6)
[2018-10-21 02:36] LABS: APPEARANCE,URINE Clear (CLEAR); BILIRUBIN,URINE Negative (NEGATIVE); COLOR,URINE Yellow (YELLOW); GLUCOSE, URINE (UA) Negative (NEGATIVE); KETONES,URINE Negative (NEGATIVE); LEUKOCYTE ESTERASE ,URINE Negative (NEGATIVE); NITRATE,URINE Negative (NEGATIVE); OCCULT BLOOD,URINE Negative (NEGATIVE); PROTEIN,URINE Negative (NEGATIVE)
[2018-10-21] MEDS ORDERED: ORPHENADRINE CITRATE 30 MG/ML ML ONE (03:42)
== END 2018-10-21 04:11 | disposition home or self-care (01) ==
LOC: EDH 01:09
DX: M62.830 Muscle spasm of back (principal); M79.605 Pain in left leg; E78.00 Pure hypercholesterolemia, unspecified; E11.9 Type 2 diabetes mellitus without complications; I10 Essential (primary) hypertension; I25.2 Old myocardial infarction; C90.00 Multiple myeloma not having achieved remission; Z79.899 Other long term (current) drug therapy
CPT/HCPCS: 36415; 74176; 80053; 81003; 82550; 83690; 85025; 85610; 85730; 96374; 96375; 99285; J1170; J2360; J2405; J7030

== ENCOUNTER 2018-10-23 13:49 | Emergency (ER) | payer OTHER ==
[2018-10-23] MEDS ORDERED: HYDROMORPHONE 1 MG/1 ML AMP ONE (14:26)
[2018-10-23] MEDS ORDERED: ONDANSETRON HCL 4 MG/2 ML VIAL ONE (14:26)
[2018-10-23 14:41] LABS: BASOPHILS % (AUTO) 0.5 % (0.0-5.0); EOSINOPHILS % (AUTO) 0.7 % (0.0-8.0); HEMATOCRIT 33.3 % (42-54); LYMPHOCYTES % (AUTO) 19.4 % (21.0-51.0); MEAN CORPUSCULAR HEMOGLOBIN 29.1 pg (27.0-33.0); MEAN CORPUSCULAR HGB CONC 34.4 g/dL (32.0-36.0); MEAN CORPUSCULAR VOLUME 84.7 fL (79-99); MONOCYTES % (AUTO) 8.6 % (3.0-13.0); NEUTROPHILS % (AUTO) 70.8 % (40.0-77.0); PLATELET COUNT (AUTO) 173 K/uL (130-400); RED BLOOD CELL COUNT(AUTO) 3.93 MIL/uL (4.50-6.20); RED CELL DISTRIBUTION WIDTH 14.2 % (11.0-15.5); WHITE BLOOD COUNT (AUTO) 9.3 K/uL (4.8-10.8)
[2018-10-23 14:47] LABS: CREATININE 0.9 mg/dL (0.5-1.5); POTASSIUM 3.3 mmol/L (3.5-5.1)
[2018-10-23 14:48] LABS: INR 0.98 (0.85-1.15); PARTIAL THROMBOPLASTIN TIME 28.2 SEC (26.3-35.5); PROTHROMBIN TIME 10.3 SEC (9.6-11.6)
[2018-10-23 14:52] LABS: ALBUMIN 2.7 g/dL (3.5-5.0); TOTAL PROTEIN, SERUM 6.2 g/dL (6.0-8.3)
== END 2018-10-23 16:01 | disposition home or self-care (01) ==
LOC: EDH 13:49
DX: G89.29 Other chronic pain (principal); M25.552 Pain in left hip; I10 Essential (primary) hypertension; I25.2 Old myocardial infarction; E11.9 Type 2 diabetes mellitus without complications; Z87.891 Personal history of nicotine dependence
CPT/HCPCS: 36415; 80053; 82550; 84484; 85025; 85610; 85730; 93005; 96374; 96375; 99285; J1170; J2405